=== PATIENT | male | born 1965 | race Caucasian/White ===

== ENCOUNTER 2019-05-27 08:29 | Observation (INO) | payer BC ==
--- NOTE | 2019-05-27 08:41 | ED ---
Abdominal Pain/Male - HPI Summary HPI Summary: Pt. is a 53 y.o male who presents to the ER for right upper abd. and back pain that started about 5 days ago. Pt. also notes a fever for 5 days around 101F. Pt. states he feels a sharp pain to his right shoulder that causes N/V x 4 this morning. Pt. denies cough, CP, SOB. He notes his urine is darker he contributes to decreased PO intake. Denies past medical hx. Sxs are moderate in severity. No current modifying factors. - History of Current Complaint Chief Complaint: EDAbdPain Stated Complaint: ABD PAIN FEVER, Time Seen by Provider: 05/27/19 08:37 Hx Obtained From: Patient Pain Intensity: 4 - Allergies/Home Medications Allergies/Adverse Reactions: Allergies Allergy/AdvReac Type Severity Reaction Status Date / Time No Known Allergies Allergy Verified 05/27/19 08:35 Home Medications: Home Medications NK [No Home Medications Reported] 05/27/19 [History Confirmed 05/27/19] PMH/Surg Hx/FS Hx/Imm Hx Previously Healthy: Yes Infectious Disease History: No Infectious Disease History: Denies: Traveled Outside the [place] in Last 30 Days - Family History Known Family History: Positive: Non-Contributory - Social History Occupation: Employed Full-time Lives: With Family Review of Systems Positive: Fever, Chills ENT: Negative Cardiovascular: Negative Negative: Palpitations, Chest Pain Respiratory: Negative Negative: Shortness Of Breath, Cough Positive: Abdominal Pain, Vomiting, Nausea. Negative: Diarrhea Positive: other - dark Skin: Negative Neurological: Negative All Other Systems Reviewed And Are Negative: Yes Physical Exam Triage Information Reviewed: Yes Vital Signs On Initial Exam: Initial Vitals Temp Pulse Resp BP Pulse Ox 98.0 F 91 16 142/99 96 05/27/19 08:31 05/27/19 08:31 05/27/19 08:31 05/27/19 08:31 05/27/19 08:31 Vital Signs Reviewed: Yes Appearance: Positive: Well-Appearing - Pt. lying in bed in NAD. present. Skin: Positive: Warm, Dry Head/Face: Positive: Normal Head/Face Inspection Eyes: Positive: Normal, EOMI Neck: Positive: Supple Respiratory/Lung Sounds: Positive: Clear to Auscultation, Breath Sounds Present Cardiovascular: Positive: Normal, RRR Abdomen Description: Positive: Other: - Abd. is soft with mild tenderness to RUQ with positive Tolentino sign. No rebound or rigidity.. Negative: CVA Tenderness (R), CVA Tenderness (L) Musculoskeletal: Positive: Normal, Strength/ROM Intact Neurological: Positive: Normal, CN Intact II-III Psychiatric: Positive: Affect/Mood Appropriate Diagnostics - Vital Signs Vital Signs Temp Pulse Resp BP Pulse Ox 05/27/19 08:31 98.0 F 91 16 142/99 96 - Laboratory Result Diagrams: 05/27/19 08:54 05/27/19 08:54 Lab Statement: Any lab studies that have been ordered have been reviewed, and results considered in the medical decision making process. Abdominal Pain Male Course/Dx - Course Course Of Treatment: Pt. presenting with upper abd. pain, fever and vomiting. He is afebrile in ED with stable VS. Pt. declines pain or nausea medication. Suspect cholelithiasis. Pending labs and GB U/S. ECG done at 0846 shows a sinus rhythm of 80bpm, normal axis, no ST elevation or depression. U/S per radiology: IMPRESSION: Cholelithiasis. Echogenic liver consistent with hepatic steatosis. No biliary duct dilatation is noted. 1025: Pt. re-examined. He is resting comfortably. Pain 4/10. Results discussed. Pending surgical consult given ongoing pain, fever, and vomiting. Pt. examined by surgical RADIATOR MECHANIC. They would like ct with contrast for further evaluation. CT per radiology: IMPRESSION: 1. DISTENDED GALLBLADDER WITH TRACE PERICHOLECYSTIC FLUID AND GALLSTONES RAISING THE. POSSIBILITY OF ACUTE CHOLECYSTITIS. RECOMMEND CLINICAL CORRELATION. 2. HEPATIC STEATOSIS. 3. SMALL BILATERAL LOWER LOBE INFILTRATES SUGGESTIVE OF ATELECTASIS. 4. MILD SPLENOMEGALY. 5. SMALL PERIUMBILICAL AND LEFT INGUINAL HERNIAS CONTAINING FAT. Pt. examined by Dr. Banegas and he plans on cholecystectomy. Pt. has remained stable in ED. - Diagnoses Differential Diagnosis/HQI/PQRI: ACS, Appendicitis, Bowel Obstruction, Gall Bladder Disease, Hepatitis, Pancreatitis, Pneumonia, Renal Colic Provider Diagnoses: Cholelithiasis Discharge ED - Sign-Out/Discharge Documenting (check all that apply): Patient Departure Patient Received Moderate/Deep Sedation with Procedure: No - Discharge Plan Condition: Stable Disposition: ADMITTED TO [facility] - Billing Disposition and Condition Condition: STABLE Disposition: Admitted to [facility]
[2019-05-27] MEDS ORDERED: NS 0.9% 1000 ML** 1,000 ML IV ONE (08:48)
[2019-05-27 09:04] LABS: ABS Basophils 0.1 10^3/ul (0-0.2); ABS Lymphocytes 1.6 10^3/ul (1.0-4.8); ABS Monocytes 1.2 10^3/ul (0-0.8); ABS Neutrophils 9.6 10^3/ul (1.5-7.7); Eosinophil % 0.2 %; Hematocrit 44 % (42-52); Hemoglobin 14.9 g/dL (14.0-18.0); Lymphocyte % 12.8 %; Mean Corpuscular HGB Conc 34 g/dL (31-36); Mean Corpuscular Hemoglobin 28 pg (27-31); Mean Corpuscular Volume 82 fL (80-94); Nucleated Red Blood Cells % 0.2; Platelet Count 215 10^3/uL (150-450); Red Cell Distribution Width 13 % (10-15); White Blood Count 12.5 10^3/uL (3.5-10.8)
[2019-05-27 09:26] LABS: Albumin 4.4 g/dL (3.2-5.2); Albumin/Globulin Ratio 1.4 (1-3); BUN/Creatinine Ratio 12.3 (8-20); C Reactive Protein 56.49 mg/L (<8.01); Calcium 9.2 mg/dL (8.6-10.3); EGFR African American 136.5 (>60); EGFR Non-African American 112.8 (>60); Globulin 3.1 g/dL (2-4); Potassium 3.8 mmol/L (3.5-5.0); Total Bilirubin 0.7 mg/dL (0.2-1.0); Total Protein 7.5 g/dL (6.4-8.9)
[2019-05-27 09:27] LABS: Troponin I 0.01 ng/mL (<0.04)
[2019-05-27] MEDS ORDERED: Piperacillin/Tazobac ADVAN(*) 3.375 GM in NS 0.9% 100 ML* 100 ML IVPB ONE (11:09)
[2019-05-27] MEDS ORDERED: NS 0.9% 1000 ML** 1,000 ML IV SCH (11:15)
[2019-05-27 11:24] LABS: Urine Appearance Clear; Urine Bacteria Absent (Absent); Urine Bilirubin Negative (Negative); Urine Blood 1+ (Negative); Urine Color Yellow; Urine Glucose Negative (Negative); Urine Ketones 1+ (Negative); Urine Nitrite Negative (Negative); Urine Protein 1+(30 mg/dL) (Negative); Urine Red Blood Cell 2+(6-10/hpf) (Absent); Urine Specific Gravity 1.016 (1.010-1.030); Urine Urobilinogen Positive (Negative); Urine White Blood Cell Trace(0-5/hpf) (Absent)
[2019-05-27] MEDS: HYDROmorphone INJ1* 1 MG/ML SYRINGE IV SLOW PU PRN (11:28)
[2019-05-27] MEDS ORDERED: Iohexol 300* (CONTRAST) 10 ML SDV IV ONE (13:49)
--- NOTE | 2019-05-27 14:54 | CONS ---
CC: Dr. Banegas, [facility]; Dr. Cherelle Hayes * SURGICAL CONSULTATION NOTE: DATE OF CONSULT: 05/27/19 LOCATION: This patient was seen in the [facility] Emergency Department on 05/27/19. PRIMARY CARE PROVIDER: Dr. Cherelle Hayes from [place]. ATTENDING PHYSICIAN: Dr. Mika Banegas. CHIEF COMPLAINT: Worsening abdominal pain. HISTORY OF PRESENT ILLNESS: The patient is a 53-year-old male who had the onset of fever to 101 six days ago and also had diminished appetite. He took aspirin and the fever persisted; last , he vomited multiple times described as bile; this past weekend, he had the onset of right upper quadrant abdominal pain radiating to the back between the shoulder blades; his urine was darker than usual. Yesterday, he tried eating solid food, but continued to vomit; he had a bowel movement yesterday described as brown and there was no blood noted; he has had no similar previous episodes, he has never had abdominal surgeries; he states that he was awake all night in pain. Currently, he rates his abdominal pain at 4. His white count in the emergency department was 12.5, CRP 56.49, electrolytes were within normal limits, liver profile was within normal limits, but lipase was elevated at 104. Gallbladder ultrasound revealed cholelithiasis; there was no gallbladder wall thickening or surrounding fluid; hepatic steatosis was noted. PAST MEDICAL HISTORY: He states that he had a recent normal echocardiogram and stress test. He is generally healthy and has occasional lower back pain. 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 MEDICATIONS: None. He denies the use of vitamins or herbals supplements. ALLERGIES: No known drug allergies. FAMILY HISTORY: Mother of oral cancer in her 60s. Father is alive and has undergone coronary artery bypass grafting; his siblings are alive and well. He does not think there is any family history of gallbladder disease. No known anesthesia complications, bleeding tendencies, or clotting disorders. 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 He drinks alcohol occasionally and denies the use of other substances. REVIEW OF SYSTEMS: Constitutional: He had fever at home as high as 101. Denies any chills. Denies any excessive fatigue. He states that he had decreased appetite and lost about 8 pounds over the past week. Respiratory: No shortness of breath or chronic cough. Cardiovascular: No anginal chest pain or palpitations. No history of myocardial infarction. He states that his blood pressure is being monitored, but he is not currently on any antihypertensives. He had a recent echocardiogram and stress test reportedly within normal limits. Endocrine: No diabetes or thyroid disease. Gastrointestinal: As described in history of present illness. Genitourinary: No dysuria. No history of kidney stones. Musculoskeletal: Intermittent lower back pain, occasional hip pain. He walks daily for exercise. Neurologic: No blurred vision. No headache. General: No history of deep vein thrombosis or pulmonary embolism. No bleeding tendencies. He last ate solid food at 5 p.m. on 05/26/19 and last drank sips of water at 11 p.m. on 05/26/19. PHYSICAL EXAM: General Survey: The patient is a 53-year-old male, well developed, well nourished, in no acute distress. Height 5 feet 8 inches, weight 191 pounds, body mass index 29. Blood pressure 146/98, pulse 76 and regular, respiratory rate 20, temperature 98, O2 saturation on room air 97%. Skin: Warm, dry, intact, anicteric. HEENT: Benign. Moist mucous membranes. No scleral icterus. His face is flushed. Neck: Supple. No cervical lymphadenopathy. Lungs: Breath sounds bilaterally clear and equal. Heart: Regular rate and rhythm. No murmurs or rubs appreciated. Abdomen: Active bowel sounds. Soft, nondistended. Tender in the epigastric area, the right upper quadrant and exquisitely tender over the right flank with mild guarding. No obvious masses or organomegaly. No obvious ventral hernias. Genitalia and rectal exams deferred. Extremities are warm without edema or skin ulceration. Neurologic: Alert and oriented x3. Full range of motion. IMPRESSION: Cholelithiasis without signs of acute cholecystitis; elevated lipase; question biliary colic, question pancreatitis. PLAN: Discussed with Dr. Banegas and CT of the abdomen and pelvis was ordered and is pending at this time and will be reviewed by Dr. Banegas when available; the patient will be kept n.p.o., he will be given IV fluids and he received a dose of IV Zosyn in the emergency department and Dilaudid as needed for pain management. Further planning will be per Dr. Banegas. TIME SPENT: Sixty minutes with greater than 50% in history taking, physical examination, and patient counseling. МАРИЯ ACKERMAN, BRODERICK [id number]/[facility] #: [id number] ARMANDO
[2019-05-27] MEDS ORDERED: Bupivacaine 0.25% EPI 200,000* 30 ML SDV ONE (15:12)
[2019-05-27] MEDS ORDERED: fentaNYL* 50 MCG/ML 2 ML VIAL (100 MCG VIAL) ONE ×2 (16:00→17:52)
[2019-05-27] MEDS ORDERED: Midazolam* 1 MG/ML 2 ML VIAL (2 MG) ONE (16:00)
[2019-05-27] MEDS ORDERED: Succinylcholine* 20 MG/ML 10 ML VIAL ONE (16:40)
[2019-05-27] MEDS ORDERED: Propofol* 10 MG/ML 20 ML BTL ONE (16:40)
[2019-05-27] MEDS ORDERED: Ketorolac INJ* 30 MG/ML 1 ML VIAL ONE (16:40)
[2019-05-27] MEDS ORDERED: EPHEDrine (Pressors)* 50 MG/ML VIAL ONE (16:40)
[2019-05-27] MEDS ORDERED: Ondansetron INJ* 2 MG/ML VIAL ONE (16:40)
[2019-05-27] MEDS ORDERED: Dexamethasone IV* 4 MG/ML 1 ML (4 MG) ONE (16:40)
[2019-05-27] MEDS ORDERED: Lidocaine 2% PF * 5 ML VIAL ONE (16:41)
[2019-05-27] MEDS ORDERED: Rocuronium* 10 MG/ML VIAL ONE (16:44)
[2019-05-27] MEDS ORDERED: Neostigmine Methylsulfate* 1 MG/ML 10 ML VIAL (1 mg/ml) ONE (18:00)
[2019-05-27] MEDS ORDERED: Glycopyrrolate IV* 0.2 MG/ML 1 ML VIAL ONE (18:00)
[2019-05-27] MEDS ORDERED: HYDROmorphone INJ1* 1 MG/ML SYRINGE IV SLOW PU PRN (18:13)
[2019-05-27] MEDS ORDERED: Ondansetron INJ* 2 MG/ML VIAL IV PRN (18:13)
[2019-05-27] MEDS ORDERED: oxyCODONE/Acetamin 5/325 MG* TAB PO PRN (18:13)
--- NOTE | 2019-05-27 18:13 | OP ---
Operative Report - Blank - Operative Report Date of Operation: 05/27/19 Note: OPERATIVE REPORT Pre-op: Right upper abdominal pain, cholelithiasis and gallbladder sludge Post-Op: Same Acute gangrenous cholecystitis Umbilical hernia Procedure: Laparoscopic cholecystectomy and open primary repair of umbilical hernia Surgeon: MD Makenzie Asst: FARHANA Chaney Anes: general with local , Dr. Clay IVF:1 liter of crystalloid EBL:min Specimen: gallbladder Drain: none Wound: 3 Findings: Acute gangrenous cholecystitis, small umbilical hernia To PACU
[2019-05-27] MEDS ORDERED: Acetaminophen TAB* 325 MG PO PRN (18:29)
[2019-05-27] MEDS ORDERED: HYDROmorphone INJ1* 1 MG/ML SYRINGE IV PRN (18:29)
[2019-05-27] MEDS ORDERED: PROCHLORPERAZINE INJ 5 MG/ML 2 ML VIAL IV PRN (18:29)
[2019-05-27] MEDS ORDERED: Naloxone* 0.4 MG/ML 1 ML VIAL IV PRN (18:29)
[2019-05-27] MEDS: NS 0.9% 1000 ML** 1,000 ML IV SCH (20:03)
[2019-05-27] MEDS: Piperacillin/Tazobactam VIAL*) 3.375 GM in NS 0.9% 100 ML* 100 ML IVPB SCH (20:46)
--- NOTE | 2019-05-27 21:38 | OP ---
CC: Ann Albert at [facility] office * DATE OF OPERATION: 05/27/19 - ROOM #340 DATE OF : 67 SURGEON: Dr. Banegas. HAIRSPRING ADJUSTER: FARHANA Lozoya ANESTHESIOLOGIST: Dr. Clay. ANESTHESIA: Local with general. PRE-OP DIAGNOSES: 1. Cholelithiasis. 2. Right upper quadrant abdominal pain. POST-OP DIAGNOSES: 1. Cholelithiasis. 2. Acute gangrenous cholecystitis. 3. Umbilical hernia. OPERATIVE PROCEDURE: Laboratory data cholecystectomy with open primary repair of a small umbilical hernia. ESTIMATED BLOOD LOSS: Less than 50 cc. IV FLUIDS: 1 L of crystalloid. WOUND CLASSIFICATION: 3. SPECIMEN: Gallbladder. DRAINS: None. COMPLICATIONS: None. FINDINGS: The patient had acute gangrenous cholecystitis with gangrenous wall with areas of patchy gangrene of the gallbladder with multiple gallstones. There also was a small umbilical hernia, which was primarily repaired and was the site of the umbilical port. BRIEF HISTORY: Mr. Percy Barrett is a 53-year-old gentleman presenting to the emergency room with several days of fever and also the development of 24 hours of severe epigastric right upper quadrant abdominal pain radiating to his back. He has mild elevation of his white blood cell count but his other labs were unremarkable. An ultrasound showed gallbladder sludge and stones with no gallbladder wall thickening or pericholecystic fluid. A CAT scan showed possibility of some fluid around the gallbladder wall, but no other acute findings other than a distended gallbladder. After a long discussion with the patient, concerning is history, evaluation, physical exam, and imaging studies, it has been recommended that he undergo a laparoscopic cholecystectomy for what appears to be severe biliary colic versus cholecystitis. The procedure was discussed with the patient and the risks of, but not limited to bleeding, infection, intraabdominal abscess formation, injury to peritoneal and retroperitoneal structures, common bile duct injury, bile leak, possibility of an open procedure, and the risks of anesthesia were all explained. DESCRIPTION OF PROCEDURE: Written informed consent was obtained and the abdomen was marked with indelible ink. Preoperative antibiotics were administered and the patient was taken to the operating room and placed in the supine position. Sequential compression devices and a warming blanket were applied. General anesthesia was administered and the abdomen was prepped and draped in the usual sterile fashion. Time-out verification was completed. 1% lidocaine was infiltrated periumbilically and a small semicircle incision was made just below the umbilicus. The patient had a small fat containing umbilical hernia on exam as well as noted on the CT scan and the umbilical skin was lifted up, was dissected up off the preperitoneal fat that is herniated through a small fascial defect. We entered the peritoneal cavity through the small fascial defect and a 12 mm blunt port was placed and the abdomen was insufflated to 15 mmHg. Under direct vision, a 12 mm epigastric port was placed and two 5 mm ports were placed in the right side of the abdominal wall. The evaluation of the right upper quadrant revealed a normal liver. There was omentum adherent to the gallbladder and this was bluntly dissected using the suction research development director. It was apparent that the gallbladder was markedly distended and severely inflamed with gangrenous greenish/grayish color to the wall as well as hyperemia. The gallbladder was so distended, I was not able to grasp it. About 60 cc of dark green bile was aspirated using an 18-gauge needle through the upper right quadrant port. The gallbladder was then grasped and elevated over the liver bed. The thickened peritoneum along the medial and lateral aspects of the infundibulum and the gallbladder was scored and divided using cautery and swept downward. I was able to identify the cystic duct and artery with careful dissection in this area using the critical view technique as I took a considerable portion of the inferior part of the gallbladder off the liver bed. The cystic duct did not appear to be dilated and the cystic artery was in its normal expected position. Once this meticulous dissection had been completed, the cystic duct and artery were doubly clipped and divided. The gallbladder was removed from the liver bed using cautery. The posterior wall of the gallbladder was quite edematous as well as gangrenous. I did enter the gallbladder in several areas. Several stones were removed using the stone forceps grasper; however, 1 or 2 stones I was not able to find as they fell into the gallbladder fossa and after a thorough view, I was not able to retrieve them. Once the gallbladder was completely removed from the liver bed, it was placed in an EndoCatch bag. The liver bed was irrigated thoroughly. Hemostasis was assured. There was no evidence of bile leak. The gallbladder was removed from the umbilical incision without difficulty. All ports were then removed under direct vision of the camera. There was no abdominal wall bleeding. The umbilical hernia was then closed primarily with three separate 0 Vicryl sutures. The skin at all 4 incisions was approximated with subcuticular 4-0 Vicryl suture. Steri-Strips were applied. The patient tolerated the procedure well, was taken to the recovery room in stable condition. [id number]/[facility] #: [id number] M[facility] ST[facility] CHILDREN'S HOSPITALJamil
[2019-05-27] MEDS: Ketorolac INJ* 30 MG/ML 1 ML VIAL IV SCH (22:45)
[2019-05-28] MEDS: NS 0.9% 1000 ML** 1,000 ML IV SCH (02:52)
[2019-05-28] MEDS: HYDROmorphone INJ1* 1 MG/ML SYRINGE IV SLOW PU PRN (02:57)
[2019-05-28] MEDS: Piperacillin/Tazobactam VIAL*) 3.375 GM in NS 0.9% 100 ML* 100 ML IVPB SCH ×2 (04:15→11:23)
[2019-05-28] MEDS: Ketorolac INJ* 30 MG/ML 1 ML VIAL IV SCH ×3 (04:59→15:59)
--- NOTE | 2019-05-28 09:40 | PN ---
Progress Note - Progress Note Date of Service: 05/28/19 SOAP: Subjective:less pain,no nausea,hungry [] Objective: Vital Signs Temp 97.7 F 05/28/19 07:19 Pulse 64 05/28/19 07:19 Resp 16 05/28/19 07:19 BP 106/60 05/28/19 07:19 Pulse Ox 95 05/28/19 07:19 Intake & Output 05/27/19 05/28/19 05/28/19 18:59 06:59 18:59 Intake Total 1900 1330 210 Output Total 950 Balance 1900 380 210 Weight 191 lb 191 lb Intake: IV Fluids 1900 985 ns 985 IVPB 105 210 ABX - ZOSYN 105 105 Oral 240 Output: Urine 950 lungs:clear bilat;heart:RRR;abd:+bs,softly distended;incisions intact with steristrips,epigastric incision with old bloody drainage,no oozing;appropriate incisional tenderness;ext:nontender calves,no edema [] Assessment:POD#1 s/p lap cholecystectomy for gangrenous gallbladder,stable [] Plan:advance to low fat diet,likely disch home after lunch,Augmentin 875mg q12h for 3 days,disch instructions reviewed,office followup 06/05/19;all questions answered []
[2019-05-28 16:22] VITALS: BP 111/64
--- NOTE | 2019-05-31 12:26 | DS ---
CC: [facility]; Dr. Cherelle Hayes, [facility], [place] DISCHARGE SUMMARY: DATE OF ADMISSION: 05/27/19 DATE OF DISCHARGE: 05/28/19 PRINCIPAL DIAGNOSIS: Acute calculous cholecystitis. PROCEDURE PERFORMED: Laparoscopic cholecystectomy. SECONDARY DIAGNOSES: None. CONDITION ON DISCHARGE: Good. DISPOSITION: To home. MEDICATIONS ON DISCHARGE: Include: 1. Augmentin 875 mg p.o. b.i.d. for 3 days. 2. Oxycodone 5/325 one tablet q.4 hours p.r.n. for moderate pain. DISCHARGE INSTRUCTIONS: Followup appointment made at [facility] office in 1 week. Postope rative wound and postop recovery written instructions were given. BRIEF HISTORY: Mr. Percy Barrett is a 53-year-old gentleman presented to the emergency room with sev eral days of fever and subsequent development of abdominal pain 16 hours prior to presentation. Pain was in the epigastric and right upper quadrant radiating through to his mid back. When he was seen in the emergency room, he was noted to have white blood cell count of 12,000. Liver transaminases and bilirubin were all normal. He did have an elevated C-reactive protein. He underwent an ultrasound of his gallbladder, which showed sludge and gallstones with no wall thicke jairo or pericholecystic fluid. There was no ductal dilation. He also underwent a CAT scan of the abd omen and pelvis, which showed concern for fluid around the gallbladder and no other acute findings. He was seen in surgical consultation and due to his persistent abdominal pain not improving with narc otics and findings on CT scan, there was concern for acute cholecystitis versus severe biliary colic and it was recommended that he undergo a laparoscopic cholecystectomy. HOSPITAL COURSE: The patient underwent a laparoscopic cholecystectomy and was found to have acute ca lculous cholecystitis with gangrenous change in the gallbladder on the day of presentation. He [place] ated the laparoscopic procedure well. He was admitted for overnight observation and continued IV ant ibiotics. On hospital day #1, he remained afebrile. He was tolerating liquid diet and his pain was adequately controlled with oral analgesia and he was discharged home with the above followup instructions. [id number]/[facility] #: [id number]
== END 2019-05-28 16:37 | disposition home or self-care (01) ==
LOC: ED 08:29 → OR 14:50 → SSU 19:17
PROVIDERS: ADMIT Surgery; ATTEND Surgery
DX: K80.00 Calculus of gallbladder with acute cholecystitis without obstruction (principal); R10.11 Right upper quadrant pain; K42.1 Umbilical hernia with gangrene; K82.A1 Gangrene of gallbladder in cholecystitis
CPT/HCPCS: 36415; 74177; 76705; 80053; 81003; 81015; 83605; 83690; 84484; 85025; 86140; 87086; 88304; 93005; 96361; 96365; 96366; 96375; 96376; 99284; G0378; J0330; J1100; J1170; J1885; J2250; J2405; J2543; J2704; J2710; J3010; Q9967